=== PATIENT | male | born 2000 | race Two or more races ===

== ENCOUNTER 2021-02-24 08:25 | Emergency (ER) | payer OTHER ==
[~2021-02-24] VITALS: Ht 175.3 cm; Wt 60.7 kg
[2021-02-24] MEDS ORDERED: HYDROcodone/acetaminophen 5mg/325mg tablet PO ONE (09:35)
[2021-02-24] MEDS ORDERED: BUPIVAcaine 0.25% w/Epi /PF 30ml vial SQ ONE (09:35)
[2021-02-24] MEDS ORDERED: BUPIVAcaine HCl 0.25%/EPInephrine 1:200,000 inj. 10 ML VIAL SQ ONE (09:40)
--- NOTE | 2021-02-24 09:59 | NUR ---
Lashae administered by provider Abdias ALCANTARA.
[2021-02-24 12:14] VITALS: BP 173/86
== END 2021-02-24 12:19 | disposition home or self-care (01) ==
LOC: ER 08:26 → EDBD 08:26 → ER 12:19
DX: S62.339A Displaced fracture of neck of unspecified metacarpal bone, initial encounter for closed fracture (principal); F12.10 Cannabis abuse, uncomplicated; W26.8XXA Contact with other sharp object(s), not elsewhere classified, initial encounter; Y93.89 Activity, other specified; Y92.89 Other specified places as the place of occurrence of the external cause; Y99.8 Other external cause status
CPT/HCPCS: 26755; 64450; 73120; 73130; 99284

== ENCOUNTER 2023-02-26 20:08 | Emergency (ER) | payer OTHER ==
[~2023-02-26] VITALS: Ht 175.3 cm; Wt 65.9 kg
[2023-02-26 20:08] VITALS: BP 134/79
[2023-02-26] MEDS ORDERED: HYDROcodone/acetaminophen 10/325mg tab PO ONE (21:40)
[2023-02-26] MEDS ORDERED: TETanus/Pertussis (Acell)/Diphther VAC/PF (Tdap-Adult) 0.5ml syringe IMVAC ONE (21:40)
[2023-02-26] MEDS ORDERED: amox tr/potassium clavulanate 875/125mg TAB PO ONE (21:45)
[2023-02-26] MEDS ORDERED: AMOX-580 PO (21:49)
== END 2023-02-26 22:11 | disposition home or self-care (01) ==
LOC: ER 20:08
DX: S91.331A Puncture wound without foreign body, right foot, initial encounter (principal); F12.90 Cannabis use, unspecified, uncomplicated; Z23 Encounter for immunization; W22.8XXA Striking against or struck by other objects, initial encounter; Y93.89 Activity, other specified; Y92.89 Other specified places as the place of occurrence of the external cause; Y99.8 Other external cause status
CPT/HCPCS: 73630; 90471; 90715; 99283; J7030; A6449